=== PATIENT | male | born 2005 | race Caucasian/White ===

== ENCOUNTER 2024-04-18 01:18 | Emergency (ER) | payer OTHER, SELFPAY ==
[2024-04-18 01:49] VITALS: BP 130/94; PULSE 79; RESP 18; O2SAT 98
--- OUTSIDE RECORDS SUMMARY | 2024-04-18 02:09 | XMS_ITS | Clinical Summary ---
Author Organization [facility] Main [facility] Address [address] [place] [address] Care Team Providers Care Scoop Driver Name Role Phone Maritza Eckert MD Primary Care Provider [phone] Allergies No known active allergies Medications No known medications Active Problems No known active problems Resolved Problems Problem Noted Date Diagnosed Date Resolved Date Pectus excavatum 10/13/2022 10/13/2022 Social History Tobacco Use Types Packs/Day Years Used Date Smoking Tobacco: Never Passive Smoke Exposure: Never Smokeless Tobacco: Never Sex and Gender Information Value Date Recorded Sex Assigned at Not on file Legal Sex Male 3:56 PM CDT Gender Identity Not on file Sexual Orientation Not on file Obstetrics History Growth Chart Information Age Height Weight Fnoduk-rde-wujn th Percentile BMI Percentile Head Circum Head Circum Percentile Date 17 years 185.3 cm (6' 0.95 ) 64.2 kg (141 lb 8 oz) 6.92%* 2022 17 years 183.5 cm (6' 0.24 ) 60.3 kg (132 lb 15 oz) 2.83%* 2022 * [facility] (Boys, 2-20 Years) Last Filed Vital Signs Vital Sign Reading Time Taken Comments Blood Pressure 112/68 10/13/2022 8:06 AM CDT Pulse 55 10/13/2022 8:06 AM CDT Temperature - - Respiratory Rate - - Oxygen Saturation 100% 09/03/2022 7:58 AM CDT Inhaled Oxygen Concentration - - Weight 64.2 kg (141 lb 8 oz) 10/13/2022 8:06 AM CDT Height 185.3 cm (6' 0.95 ) 10/13/2022 8:06 AM CD T Body Mass Index 18.69 10/13/2022 8:06 AM CDT Body Mass Index Percentile 6.92% 10/13/2022 8:0 6 AM CDT Growth Chart: [facility] (Boys, 2-2 0 Years) Plan of Treatment Health Maintenance Due Date Last Done Comments Depression Screening 2004 Hepatitis C Screening 2004 Regular Well Visit/Exam 18-64 2022 Meningococcal B Vaccine (2 o f 2 - Bexsero SCDM 2-dose series) 01/02/2023 07/02/2022 Covid-19 Vaccine (3 - 2023-2 5 season) 2023 04/19/2021, 03/29/2021 Influenza Vaccine (#1) 2023 12/15/2018, 2017 DTaP/Tdap/Td Vaccine (7 - Td or Tdap) 10/23/2025 10/24/2015, 06/28/2009, 09/21/2005, Additional history exists Hepatitis B Screening Completed 06/11/2005 , 2004, 2004, Additional history exists Pneumococcal vaccine <65 Completed 006, 07/07/2005, 03/30/2005, Additional history exists Varicella Vaccines Completed 07/05/2008, 06/11/2005 HPV Vaccines Completed 07/02/2022, 12/15/2018 Meningococcal Vaccine Completed 07/02/2022, 016 [place] [address] [facility] Care Teams Scoop Driver Relationship Specialty Start Date End Date Maritza Eckert MD [address] [place] [address] PCP - General Pediatrics 07/02/22
--- OUTSIDE RECORDS SUMMARY | 2024-04-18 02:09 | XMS_ITS | Referral Summary ---
Author Organization [facility] Main [facility] Address [address] [place] [address] Care Team Providers Care Health And Safety Specialist Name Role Phone Maritza Eckert MD Primary Care Provider [phone] Allergies No known active allergies Medications No [...] on file Sexual Orientation Not on file Last Filed Vital Signs Vital Sign Reading [...] 10/13/2022 8:0 6 AM CDT Growth Chart: [facility] (Boys, 2-2 0 Years) Plan of Treatment Not on file [place] [address] [facility] [address] [address] Care Teams Health And Safety Specialist Relationship Specialty Start Date End Date Maritza Eckert MD [address] [place] [id number] PCP - General Pediatrics 07/02/22
--- NOTE | 2024-04-18 02:15 | ED_ITS ---
HPI - Wound/Laceration General Chief Complaint: Wound/Laceration Stated Complaint: lac to left pointer finger Time Seen by Provider: 04/18/24 01:41 Source: patient Mode of arrival: ambulatory Limitations: no limitations History of Present Illness HPI narrative: Patient is a 18-year-old male who presents the ED with report of a laceration to his left 2nd digit. Patient reports he was cutting something and accidentally sustained a small flap laceration to with tip of his left 5th digit finger pad. No active bleeding. Tetanus up-to-date. No numbness. Related Data Allergies Allergy/AdvReac Type Severity Reaction Status Date / Time No Known Allergies Allergy Verified 04/18/24 01:19 Review of Systems Review of Systems: All systems reviewed & are unremarkable except as noted in HPI. All systems reviewed & are unremarkable except as noted in HPI and below Exam Narrative: GENERAL: Well appearing, well-nourished, non-toxic, in no acute distress. HEAD: Normocephalic, atraumatic. RESPIRATORY: Airway patent, respirations nonlabored. CARDIOVASCULAR: Regular rate and rhythm. MUSCULOSKELETAL: Moves all extremities. No gross deformities. SKIN: Warm, dry, normal color. Very small 0.25 cm circular flap laceration to distal finger pad of left 2nd digit. No active bleeding. Sensation intact. Capillary refill intact NEURO: A&O X3. Speech clear. PSYCHIATRIC: Appropriate mood and affect. Normal interaction. Course Vital Signs Vital signs: Vital Signs Pulse Rate 79 04/18/24 01:49 Respiratory Rate 18 04/18/24 01:49 Blood Pressure 130/94 H 04/18/24 01:49 Pulse Oximetry 98 04/18/24 01:49 Pulse Rate 79 04/18/24 01:49 Respiratory Rate 18 04/18/24 01:49 Blood Pressure 130/94 H 04/18/24 01:49 Pulse Oximetry 98 04/18/24 01:49 Procedures Laceration Laceration 1: Date: 04/18/24 Time: 02:14 Site: hand Side (If applicable): left (2nd digit finger tip) Size (cm): 0.25 Description: flap and clean Depth: simple, single layer Local Anesthetic: none Pre-repair: wound explored and irrigated ====== Skin Level ====== Skin layer closed with: dermabond ====== Subcutaneous Layer ====== ====== Muscle Layer ====== ====== Tendon Layer ====== MDM - Wound/Laceration MDM Narrative Medical decision making narrative: Laceration very small and superficial. Repaired with Dermabond. Tetanus up-to-date. Discharged home. Medical Records Attestation: I reviewed the patient's medical records. Discharge Plan Discharge Clinical Impression: Superficial laceration of finger Patient Disposition: Home, Self-Care Condition: Stable Instructions: Antibiotic Form, Laceration (ED), Skin Adhesive Care (ED) Additional Instructions: Allow Dermabond glue to fall off on its own. Do not tried to pick at glue. Return to the ED for recurrent bleeding, severe pain, recurrent injury, or any other symptoms of concern. Patient Language: Cook Islander Follow-up/Referrals: Maritza Eckert MD [Primary Care Provider] - Time of Disposition: 02:17
[2024-04-18 02:39] VITALS: BP 132/84; PULSE 72; RESP 15; O2SAT 100
== END 2024-04-18 02:40 | disposition home or self-care (01) ==
PROVIDERS: Emergency Provider Physician Assistant; PCP Pediatrics
DX: S61.211A Laceration without foreign body of left index finger without damage to nail, initial encounter (principal); W26.9XXA Contact with unspecified sharp object(s), initial encounter
CPT/HCPCS: 12001; 99282